=== PATIENT | female | born 1985 | race Caucasian/White ===

== ENCOUNTER 2023-10-03 10:30 | Outpatient (CLI) | payer BC, SELFPAY ==
--- NOTE | ~2023-10-03 | US_ITS ---
LIMITED OBSTETRIC ULTRASOUND Ordering provider: Ciera Parekh APRN History: . N91.2 - Amenorrhea, unspecified . Comparison: None. FINDINGS: PRESENTATION: Variable. movement is noted. PLACENTAL LOCATION: Anterior No previa. 3.9 cm from cervix. HEART RATE: 141 bpm (normal is between 110 to 160 bpm). AMNIOTIC FLUID INDEX: Normal. OTHER: Maternal ovaries not visualized. Estimated weight is 148.6 mg. IMPRESSION: Single live fetus of 16 weeks and 2 days with variable presentation. NAM is March 17, 2024 Reviewed, dictated and finalized at location A. IMPRESSION: Single live fetus of 16 weeks and 2 days with variable presentation. NAM is Feb
== END 2023-10-03 10:31 ==
LOC: GOSHIMG 10:32
PROVIDERS: Visit Provider Nurse Practitioner Obstetrics & Gynecology
DX: Z34.92 Encounter for supervision of normal pregnancy, unspecified, second trimester (principal); Z3A.16 16 weeks gestation of pregnancy
CPT/HCPCS: 76815

== ENCOUNTER 2023-10-26 16:32 | Outpatient (CLI) | payer BC, SELFPAY ==
[2023-10-26 17:00] LABS: Basophils Percent Auto 0.2 % (0.2-1.2); Eosinophils Absolute Auto 0.3 K/mm3 (0-0.3); Eosinophils Percent Auto 2.6 % (0-4.4); Hematocrit 35.7 % (37.0-47.0); Hemoglobin 12.4 g/dL (12.0-15.0); Immature Granulocyte Absolute 0.03 K/mm3 (0.00-0.031); Immature Granulocyte Percent A 0.3 % (0-0.5); Lymphocytes Absolute Auto 1.82 K/mm3 (0.9-3.2); Lymphocytes Percent Auto 16.4 % (18.3-44.2); Mean Corpuscular HGB Conc 34.7 g/dl (32-36); Mean Corpuscular Hemoglobin 30.7 pg (26-34); Mean Corpuscular Volume 88.4 fl (80-100); Mean Platelet Volume 10.1 fl (7.4-10.4); Monocytes Absolute Auto 0.7 K/mm3 (0.1-0.6); Monocytes Percent Auto 6.3 % (2.6-8.5); Neutrophils Absolute Auto 8.2 K/mm3 (1.3-6.7); Neutrophils Percent Auto 74.2 % (45.5-73.1); Platelet Count Result 287 k/mm3 (150-375); Red Blood Count 4.04 M/mm3 (4.2-5.4); Red Cell Distribution Width 12.7 % (11.5-14.5); White Blood Count 11.1 K/mm3 (4.5-10.0)
[2023-10-26 17:42] LABS: Appearance Urine Clear (Clear); Bilirubin Urine Negative (Negative); Blood Urine Negative (Negative); Color Urine Yellow (Yellow); Glucose Urine UA Negative (Negative); Ketones Urine Negative (Negative); Leukocyte Esterase Ur Negative LEU/UL (Negative); Nitrate Urine Negative (Negative); Protein Urine Negative (Negative); Specific Grav Ur 1.023 (1.001-1.035)
[2023-10-26 17:45] LABS: Add Urine Microscopic? NO
[2023-10-26 17:54] LABS: HIV 1/2 Ab P24 Ag Result Negative (Negative)
[2023-10-26 18:05] LABS: Hepatitis B Surface Antigen Negative (Negative); Rubella IgG Antibody 11.3 IU/ML
[2023-10-26 18:22] LABS: Hepatitis C Virus Antibody Negative (Negative)
[2023-10-27 10:33] LABS: Rapid Plasma Reagin Non-Reactive (NonReactive)
== END 2023-10-26 16:33 | disposition home or self-care (01) ==
PROVIDERS: PCP Nurse Practitioner Family; Visit Provider Obstetrics & Gynecology
DX: Z34.90 Encounter for supervision of normal pregnancy, unspecified, unspecified trimester (principal)
CPT/HCPCS: 36415; 81003; 85025; 86592; 86703; 86762; 86787; 86803; 86850; 86900; 86901; 87086; 87088; 87340; G0432

== ENCOUNTER 2024-03-05 09:01 | Outpatient (CLI) | payer BC, SELFPAY ==
[2024-03-05] VITALS (10 sets, daily range): BP systolic 95–100; BP diastolic 58–68; PULSE 83–109; O2SAT 99–100
[2024-03-05] MEDS: ACETAMINOPHEN 500 MG TABLET 1000 MG PO (09:53)
--- NOTE | 2024-03-05 10:48 | PC.NURSE ---
Pt came in for NST. After NST was done pt stated stated she had a MCGILL that was 7 out of 10. RN informed Dr. Velez of this. Patient was not experiencing any other symptoms. Orders to give Tylenol and discharge pt home if MCGILL resolves. [id number]: RN phone Dr. Velez to inform her that patient's headache has resolved orders to discharge patient home
== END 2024-03-05 10:20 ==
LOC: ANHOUTPT 09:38 → ANHLDR 09:48
PROVIDERS: PCP Nurse Practitioner Family; Visit Provider Obstetrics & Gynecology
DX: O36.0190 Maternal care for anti-D [Rh] antibodies, unspecified trimester, not applicable or unspecified (principal); O26.899 Other specified pregnancy related conditions, unspecified trimester; R51.9 Headache, unspecified; Z3A.00 Weeks of gestation of pregnancy not specified
CPT/HCPCS: 59025; A9270

== ENCOUNTER 2024-03-15 09:08 | Outpatient (RCR) | payer BC, SELFPAY ==
[2024-02-23 09:15] VITALS: BP 117/58; PULSE 89
[2024-02-27 07:49] VITALS: BP 111/61; PULSE 95
[2024-03-01 08:36] VITALS: BP 110/67; PULSE 116
[2024-03-08 09:13] VITALS: BP 107/65; PULSE 74
[2024-03-12 08:22] VITALS: BP 108/62; PULSE 74
--- NOTE | ~2024-03-15 | US_ITS ---
EXAMINATION: US OB limited w BPP DATE: 03/08/2024 09:05 INDICATION: Third trimester with advanced maternal age TECHNIQUE: Real-time pelvic ultrasound was performed. The interpreting radiologist was not present fo r the study. COMPARISON: None. FINDINGS: There is a single living fetus in vertex presentation. The placenta is anterior. heart rate is 127 beats per minute (bpm). Normal amniotic fluid index of 14.8 cm (5th%-95%: 7.3-23.9 cm at T8 week s estimated gestational age) Biophysical profile performed by the technologist: breathing (30 sec sustained breathing in 30 minutes): 2 out of 2 movement (3 gross body movements in 30 minutes): 2 out of 2 tone (one episode of yapfepv-volnljslg-gpsnfnb limb movement): 2 out of 2 Amniotic fluid pocket (2 cm): 2 out of 2 Total score: 8 out of 8 IMPRESSION: 1. Single living fetus in vertex presentation with heart rate of 127 bpm. 2. Biophysical profile 8 out of 8. 3. Normal amniotic fluid index of 14.8 cm. Reviewed, dictated and finalized at location B. ET REPORTER
--- NOTE | ~2024-03-15 | US_ITS ---
EXAMINATION: US OB follow up w BPP DATE: 02/23/2024 09:46 INDICATION: Advanced maternal age. Estimated weight during third trimester TECHNIQUE: Real-time pelvic ultrasound was performed. The interpreting radiologist was not present fo r the study. COMPARISON: None. FINDINGS: There is a single living fetus in vertex presentation. The placenta is anterior and not low-lying. C ervical length measures approximately 3.3 cm which is normal. heart rate is 136 beats per minut e (bpm).The amniotic fluid index is 21.3 cm, which is normal (5th%-95%: 7.7-24.9 cm at 36 weeks estim ated gestational age) . The following biometric data were obtained: BPD: 9.0 cm -> 36 weeks 3 days Head circumference: 31.7 cm -> 35 weeks 5 days Abdominal circumference: 35.3 cm -> 39 weeks 1 days Femur length: 7.1 cm -> 36 weeks 2 days Below normal head circumference to abdominal circumference ratio: 0.90 (normal range 0.92-1.05). These measurements are otherwise concordant. Estimated weight: 3309 g (+/-) 496 g, 7lbs 5oz (+/-) 1 lb. 2 oz Biophysical profile performed by the technologist: breathing (30 sec sustained breathing in 30 minutes): 2 out of 2 movement (3 gross body movements in 30 minutes: 2 out of 2 tone (one episode of rlzwqtw-dvdsqkfqv-qwamymk limb movement): 2 out of 2 Amniotic fluid pocket (2 cm): 2 out of 2 Total score: 8 out of 8 IMPRESSION: 1. Single living fetus in vertex presentation. 2. Normal amniotic fluid index of 21.3 cm. 3. Biophysical profile 8 out of 8. 4. Estimated weight is 88th percentile by Hadlock criteria when 03/20/2024 is used as the estim ated date of delivery (NAM). Please correlate with clinical information or earlier ultrasounds for mo st accurate NAM. 5. Head circumference to abdominal circumference ratio is 0.90 slightly below the normal range (0.92- 1.05). Reviewed, dictated and finalized at location A. IMPRESSION: 1. Single living fetus in vertex presentation. 2. Normal amniotic fluid index of 21.3 cm. 3. Biophysical profile 8 out of 8. 4. Estimated weight is 88th percentile by Hadlock criteria when 4 is used as the estimated date of delivery (NAM). Please correlate with clinic al information or earlier ultrasounds for most accurate NAM. 5. Head circumference to abdominal circumference ratio is 0.90 slightly below t he normal range (0.92-1.05).
--- NOTE | ~2024-03-15 | US_ITS ---
EXAMINATION: US OB limited w BPP DATE: 03/01/2024 08:33 INDICATION: Advanced maternal age. Third trimester. TECHNIQUE: Real-time pelvic ultrasound was performed. COMPARISON: Ultrasound 02/23/2024 FINDINGS: There is a single living fetus in vertex presentation. The placenta is anterior. heart rate is 135 beats per minute (bpm). The amniotic fluid index is 15.1 cm, which is normal. Biophysical profile performed by the technologist: breathing (30 sec sustained breathing in 30 minutes): 2 out of 2 movement (3 gross body movements in 30 minutes): 2 out of 2 tone (one episode of ovqjasd-ynukpkkkg-zknmkju limb movement): 2 out of 2 Amniotic fluid pocket (2 cm): 2 out of 2 Total score: 8 out of 8 IMPRESSION: 1. Single living fetus in vertex presentation. 2. Biophysical profile 8 out of 8. Reviewed, dictated and finalized at location A. SEWER
--- NOTE | ~2024-03-15 | US_ITS ---
EXAMINATION: US OB limited w BPP DATE: 03/15/2024 10:09 INDICATION: Advanced maternal age during third trimester . Assess biophysical profile and am niotic fluid index. TECHNIQUE: Real-time pelvic ultrasound was performed. The interpreting radiologist was not present fo r the study. COMPARISON: None. FINDINGS: There is a single living fetus in each presentation. The placenta is anterior. heart rate is 1 38 beats per minute (bpm). Normal amniotic fluid index of 11.8 cm (5th%-95%: 7.2-22.6 cm at 39 weeks estimated gestational age) Biophysical profile performed by the technologist: breathing (30 sec sustained breathing in 30 minutes): 2 out of 2 movement (3 gross body movements in 30 minutes): 2 out of 2 tone (one episode of dsudbmc-mhpfyqnxb-kxqnrql limb movement): 2 out of 2 Amniotic fluid pocket (2 cm): 2 out of 2 Total score: 8 out of 8 IMPRESSION: 1. Single living fetus in each presentation with heart rate of 138 bpm. 2. Biophysical profile 8 out of 8. 3. Normal amniotic fluid index of 11.8 cm. Reviewed, dictated and finalized at location B. CUTTER
[2024-03-15 09:35] LABS: Basophils Percent Auto 0.2 % (0.2-1.2); Eosinophils Absolute Auto 0.1 K/mm3 (0-0.3); Hematocrit 33.6 % (37.0-47.0); Hemoglobin 10.8 g/dL (12.0-15.0); Immature Granulocyte Absolute 0.05 K/mm3 (0.00-0.031); Immature Granulocyte Percent A 0.6 % (0-0.5); Lymphocytes Absolute Auto 1.39 K/mm3 (0.9-3.2); Lymphocytes Percent Auto 15.6 % (18.3-44.2); Mean Corpuscular HGB Conc 32.1 g/dl (32-36); Mean Corpuscular Hemoglobin 28.7 pg (26-34); Mean Corpuscular Volume 89.4 fl (80-100); Mean Platelet Volume 11.5 fl (7.4-10.4); Monocytes Absolute Auto 0.5 K/mm3 (0.1-0.6); Monocytes Percent Auto 5.9 % (2.6-8.5); Neutrophils Absolute Auto 6.9 K/mm3 (1.3-6.7); Neutrophils Percent Auto 76.7 % (45.5-73.1); Platelet Count Result 223 k/mm3 (150-375); Red Blood Count 3.76 M/mm3 (4.2-5.4); White Blood Count 8.9 K/mm3 (4.5-10.0)
[2024-03-15 09:38] VITALS: BP 117/64; PULSE 83
[2024-03-15 10:35] LABS: HIV 1/2 Ab P24 Ag Result Negative (Negative)
[2024-03-15 11:32] LABS: Rapid Plasma Reagin Non-Reactive (NonReactive)
== END 2024-05-23 23:59 | disposition home or self-care (01) ==
LOC: ANHOBOP 09:08
PROVIDERS: PCP Nurse Practitioner Family; Visit Provider Obstetrics & Gynecology
DX: O09.513 Supervision of elderly primigravida, third trimester (principal); Z3A.36 36 weeks gestation of pregnancy
CPT/HCPCS: 36415; 59025; 76815; 76816; 76819; 85025; 86592; 86703; 86850; 86900; 86901; G0432

== ENCOUNTER 2024-03-16 05:39 | Inpatient (IN) | payer BC, SELFPAY ==
[2024-03-16] VITALS (41 sets, daily range): BP systolic 88–118; BP diastolic 54–81; PULSE 55–93; RESP 15–20; TEMP 36–36.9; O2SAT 98–100; BMI 37.8
[2024-03-16] MEDS: ACETAMINOPHEN 500 MG TABLET 1000 MG PO (06:09)
[2024-03-16] MEDS: LACTATED RINGERS 1,000 ML 125 ML IV CONT (06:12)
--- NOTE | 2024-03-16 06:16 | LDADM ---
This patient, Ciera Mancera, was admitted to Labor/Delivery/Recovery 120 on 03/16/24 at 05:39. Plans for labor, pain management and were discussed with patient. Patient/family oriented to hospital policies and general routines including ID bracelet, bed and alarms, visiting hours, pain management, procedures, bathroom and other care routines, personal items, smoking policy, room service/diet and guest tray routines, security routines, and visiting hours. Patient/Family are encouraged to report perceived risks to care and to ask questions if they do not understand what they are told or what they should do. See OBIX for further documentation.
--- NOTE | 2024-03-16 07:26 | P.HP_ITS ---
H&P: HPI History of Present Illness Date/Time: 03/16/24 07:26 Chief Complaint: Repeat section Narrative: 38 y/o at 39 weeks admitted for elective repeat section and tubal sterilization. She has had 3 prior sections and has satisfied parity and request permanent sterilization. She declines all other nonpermanent forms of contraception. PNC significant for AMA. She has had normal surveillance testing. Review of Systems Review of Systems: All systems reviewed & are unremarkable except as noted in HPI and below Constitutional: Constitutional: Reports no additional constitutional complaints and Denies headache(s) Eyes: Eyes: Denies spots in vision ENT: Reports system reviewed and no additional complaints, except as documented and Denies headache(s) Cardiovascular: Cardiovascular: Denies chest pain and Denies dyspnea Respiratory: Respiratory: Denies dyspnea Gastrointestinal: Gastrointestinal: Reports no additional gastrointestinal complaints Genitourinary: Genitourinary: Reports amenorrhea Musculoskeletal: Musculoskeletal: Reports no additional musculoskeletal complaints Integumentary/Breasts: Skin/Breast: Denies breast mass and Denies rash Neurologic: Denies headache(s) Psychiatric: Psychiatric: Reports no additional psychiatric complaints [facility] Past Medical History Medical History (Updated 03/16/24 @ 07:29 by Usman Velez MD) Surgical History Surgical History (Updated 03/16/24 @ 07:29 by Usman Velez MD) History of appendectomy History of x3 Family History Family History Father Diabetes mellitus Grandparent Heart disease Social History Social History Smoking status: Never smoker Alcohol intake: former Substance use: never Do You Feel Safe in your Home?: Yes Lack of Transportation: No Lack of Food: Never True Current Housing: I Have Housing Concerned About Future Housing: No Difficulty Paying Gas/Electric Bills: No Difficulty Paying for Meds: No Currently Unemployed: No Education: Master's Degree or Higher Difficulty w/ Childcare or Family Care: No Spiritual care concerns: No Meds Home Medications and Allergies Home Medications Medication Instructions Recorded Confirmed Type docosahexaenoic acid 200 mg 1 mg PO DAILY 09/28/23 03/13/24 History capsule ( DHA) Allergies Allergy/AdvReac Type Severity Reaction Status Date / Time No Known Drug Allergies AdvReac none Verified 03/13/24 08:49 Vital Signs Vital Signs - 24 hr 03/16/24 06:04 03/16/24 06:06 03/16/24 06:09 Temperature 97.9 F Pulse Rate 81 Respiratory Rate 16 Blood Pressure 111/66 Pulse Oximetry 100 98 Oxygen Delivery 03/16/24 06:14 03/16/24 06:19 03/16/24 06:24 Temperature Pulse Rate Respiratory Rate Blood Pressure Pulse Oximetry 98 99 100 Oxygen Delivery 03/16/24 06:29 03/16/24 06:34 03/16/24 06:39 Temperature Pulse Rate Respiratory Rate Blood Pressure Pulse Oximetry 99 99 99 Oxygen Delivery 03/16/24 06:44 03/16/24 06:49 03/16/24 06:54 Temperature Pulse Rate Respiratory Rate Blood Pressure Pulse Oximetry 98 99 99 Oxygen Delivery 03/16/24 06:09 03/16/24 06:15 Temperature 97.9 F Pulse Rate Respiratory Rate Blood Pressure Pulse Oximetry Oxygen Delivery Room Air Exam Const: General: no acute distress Eyes: General: appearance normal, both eyes and all related structures Resp: Effort & Inspection: normal respiratory effort Cardio: Rate: regular rate GI: Other: Gravid no fundal tenderness no right upper quadrant pain Skin: General skin exam: no rashes or lesions noted Neuro: Cognition (Neuro): normal cognition Extrem: General: normal to inspection Psych: Mental Status: mental status grossly normal Assessment and Plan Assessment and plan (1) Encounter for sterilization: Code(s): Z30.2 - Encounter for sterilization Status: Acute Assessment and Plan: 1. Admit 2. Will proceed with repeat section and tubal sterilization.
[2024-03-16] MEDS: FAMOTIDINE 20 MG/2 ML VIAL IV PUSH (07:28)
[2024-03-16] MEDS: ONDANSETRON INJ 4 MG/2 ML VIAL IV PUSH (07:28)
[2024-03-16] MEDS: ceFAZolin 2 GM/D5W 50 ML 2 GM/50 ML BAG IVPB (07:35)
--- NOTE | 2024-03-16 07:37 | P.PNAN_ITS ---
Anes - Initial Pre Proc Eval Procedure: Operation Date: 03/16/24 07:30 Proposed Procedures p Repeat Section with Tubal Ligation - Usman Velez MD Date/Time: 03/16/24 07:37 Surgeon: Usman Velez MD Pre Op Diagnosis: C section Patient Data Age: 38 Gender: F Height: 1.52 m Weight: 88 kg Last Vital Signs Temp 36.6 C 03/16/24 06:09 Pulse 81 03/16/24 06:06 Resp 16 03/16/24 06:06 BP 111/66 03/16/24 06:06 Pulse Ox 99 03/16/24 06:54 O2 Del Method Room Air 03/16/24 06:15 Allergies Allergy/AdvReac Type Severity Reaction Status Date / Time No Known Drug Allergies AdvReac none Verified 03/13/24 08:49 Home Medications Medication Instructions Recorded Confirmed Type docosahexaenoic acid 200 mg 1 mg PO DAILY 09/28/23 03/13/24 History capsule ( DHA) Patient hx anesthesia problems: none Family hx anesthesia problems: none Results Review: All pre-operative results and documents have been reviewed as part of the pre- operative evaluation. COUNT INCLUDES THE [facility] Past Medical History Medical History Surgical History Surgical History History of appendectomy History of x3 Family History Family History Father Diabetes mellitus Grandparent Heart disease Social History Social History Smoking status: Never smoker Alcohol intake: former Substance use: never Do You Feel Safe in your Home?: Yes Lack of Transportation: No Lack of Food: Never True Current Housing: I Have Housing Concerned About Future Housing: No Difficulty Paying Gas/Electric Bills: No Difficulty Paying for Meds: No Currently Unemployed: No Education: Master's Degree or Higher Difficulty w/ Childcare or Family Care: No Spiritual care concerns: No Anes - Eval Final PreProcedure Day of Procedure 03/16/24 07:37 Patient weight: obese Heart: regular rate and rhythm Lungs: clear to auscultation Airway: Mallampati scale class III Neurological: alert and oriented Last oral intake: >/= 8 hours ASA classification: III Emergent: no Anesthetic plan: proceed Anesthesia type and monitoring: regional spinal and standard monitoring Results Review: All pre-operative results and documents have been reviewed as part of the pre- operative evaluation. Informed Consent: The patient's anesthetic plan and its attendant risks and benefits were discussed with the patient/family/POA. Questions were solicited and answers provided to the satisfaction of the patient/family/POA.
--- NOTE | 2024-03-16 07:47 | P.PNAN_ITS ---
Anes - Eval Final PreProcedure Day of Procedure 03/16/24 07:47 Patient weight: obese Heart: regular rate and rhythm Lungs: clear to auscultation Airway: Mallampati scale class II Neurological: alert and oriented Last oral intake: >/= 8 hours ASA classification: II Emergent: no Anesthetic plan: proceed Anesthesia type and monitoring: regional spinal and standard monitoring Results Review: All pre-operative results and documents have been reviewed as part of the pre- operative evaluation. Informed Consent: The patient's anesthetic plan and its attendant risks and benefits were discussed with the patient/family/POA. Questions were solicited and answers provided to the satisfaction of the patient/family/POA.
[2024-03-16] MEDS: METHYLERGONOVINE MALEATE 0.2 MG/ML VIAL IM (09:46)
--- NOTE | 2024-03-16 09:50 | P.PCNOB_ITS ---
OB - Delivery Note Procedure Delivery date: 03/16/24 Pre-op diagnosis: Breech Presentation, Previous Delivery and Other (Undesired fertility, request sterilization) Post-op Diagnosis: Same Induction method: None Prior to decision for section, ACO[facility] labor guidelines were considered and discussed with the patient and staff. Decision made to proceed with the section.: Yes Procedure Performed: Repeat and Tubal Ligation Surgeon: Usman Velez MD Anesthesia type: Spinal Description of Procedure/Findings: Female , normal fallopian tubes and ovaries After informed consent, risks and benefits of the procedure was discussed with the patient. The patient was taken to the operating room where she was placed in the dorsal lithotomy position with leftward tilt after spinal anesthesia was placed and found to be adequate. She was then prepped and draped in the usual sterile fashion. A Pfannenstiel skin incision was made with a scalpel along prior scar and was carried through to the underlying layer of fascia. The fascia was then nicked in the midline, extending bilaterally with Huff scissors. The fascia was dissected off the rectus muscles superiorly and inferiorly. The rectus muscles were in the midline, and peritoneum was identified and entered bluntly. The pelvic organs were visualized. The bladder blade was then inserted. The vesicouterine peritoneum was identified and entered sharply with Metzenbaum scissors and extended bilaterally and then the bladder flap was created digitally. The low transverse uterine incision was then made with the scalpel and extended with bilateral index fingers in a crescent-shaped fashion. Both feet were gently grasped and the buttocks was delivered. The arms were then delivered and the next the head was delivered in a flex position. The cord was reduced from leg and around the trunk area x 2. The Nose and mouth were suctioned. The cord was clamped twice and cut. The infant was then handed off to the awaiting pediatric staff. The placenta was then delivered manually. The uterine cavity was sponge curetted. The uterus was then exteriorized. The uterine incision was then closed with 0 vicryl in a running locked fashion. A second layer of figure of eight sutures of 0 vicryl were used. Anesthesia was instructed to give 2mg of Methergine IM for improved tone of lower uterine segment. Tone improved. Hemostasis noted. The right and left fallopian tubes were excised using Ligasure. Hemostasis noted. Posterior cul de sac irrigated. The uterus was then returned to the abdomen. Bilateral gutters were cleared off all clots and debris. The uterine incision and salpingectomy sites were hemostatic.The peritoneum was approximated with 3.0 vicryl. The muscle bellies were inspected and noted to be hemostatic. The subfascial layer was noted to be hemostatic, and the fascia was closed with 0 Vicryl in a running fashion x2. The subcutaneous layer was irrigated. Hemostasis obtained with cautery. The subcutaneous layer was approximated with 3-0 Vicryl. The skin was closed with 3.0 vicryl on a [place] needle. Dermabond applied at incision. Mipelex dressing applied. All instruments, needle, and lap counts were correct x3. The patient was taken to the recovery room in stable condition. Specimen: Yes (right and left fallopian tubes, placenta nd cord) Estimated Blood Loss: 450 Drains: No Packing: No Pathology: Yes (right and left fallopian tubes) Complications: No immediate complications Condition: Stable Disposition: Floor [place] Baby Date of : 03/16/24 Gestational Age by Date: 39 Infant gender: Female presentation: breech (footling) Placenta delivery description: Manual Removal Cord Vessel Description: 3 Vessels, Loose (1 around ext, 2 around trunk), Reduced and Around Extremity
--- NOTE | 2024-03-16 10:05 | P.DS_ITS ---
DS: Admitting Diagnosis Admitting Diagnosis 1. Elective repeat section 2. Request permanent sterilization 3. UTI DS: Discharge Diagnosis Discharge Diagnosis (1) Encounter for sterilization: Code(s): Z30.2 - Encounter for sterilization Status: Acute (2) History of : Code(s): Z98.891 - History of uterine scar from previous surgery Status: Acute (3) Delivery by section: Status: Acute OB - DS: Summary Hospital Course Hospital Course: She was admitted for repeat section and bilateral salpingectomy. Recent urine culture was positive for UTI. She received antibiotics IV and was continued on oral antibiotics. Post operatively OB Procedures : NST and Ultrasound OB Procedures Intrapartum: and Tubal ligation (bilateral salpingectomy) OB Procedures: : None Peripartum Data Infant Delivery Method: Section Procedures: Procedures Operation Date: 03/16/24 07:30 Actual Procedure Side Surgeon p Repeat Section with Tubal Ligation Bilateral Usman Velez MD complications: none Status at Discharge Functional status at discharge: independent ambulation Time Spent with Patient Time attestation: Total time spent providing and/or coordinating discharge services: Exam Const: General: cooperative Orientation/consciousness: oriented to person, oriented to place and oriented to time HENMT: Face/Nose/Sinus: Normal external nose present Eyes: General: appearance normal, both eyes and all related structures Resp: Effort & Inspection: normal respiratory effort GI: Inspection: normal to inspection Skin: General skin exam: normal color Neuro: General: oriented to person, oriented to place and oriented to time Extrem: General: normal to inspection and no calf tenderness Psych: Appearance: grossly normal Mental Status: mental status grossly n ormal Discharge Plan Discharge Attending physician on discharge: Usman Velez Consulting providers: Nahum Crespo; Alexander Ayala Patient Disposition: Home, Self-Care Activity: may shower, no straining and no driving Diet: regular Wound Care Instructions: follow printed instructions Patient Instructions: Antibiotic Form Stand Alone Forms: General Discharge Information Follow-up/Referrals: Usman Velez MD [Physician] - 1 Week Discharge Medications: No Action DHA 200 mg capsule 1 mg PO DAILY Date of admission: 03/16/24 05:39 Primary Care Provider: SusiTracie Admitting Provider: Usman Velez Attending physician on admission: Usman Velez Condition: Stable
[2024-03-16] MEDS: SIMETHICONE 80 MG TAB.CHEW PO (11:58)
[2024-03-16] MEDS: DOCUSATE SODIUM 100 MG CAPSULE PO ×2 (11:59→17:55)
[2024-03-16] MEDS: KETOROLAC 15 MG/ML VIAL (*BKC) IV PUSH ×3 (11:59→23:15)
[2024-03-16] MEDS: ACETAMINOPHEN 325 MG TABLET 650 MG PO ×3 (11:59→23:15)
--- NOTE | 2024-03-16 15:15 | PC.NURSE ---
1515- Attempted to assist mother in latching to the [right] breast in football & cradle] position. [was not] able to maintain an appropriate latch. Mother [declines ] nipple pain/discomfort. Baby made a few attempts to open her mouth and latch but was unable to. was gassy and working on a bowel movement so we took a break from trying to feed and let her finish. Mom's other children are in the room and she wants to wear a cover so it is difficult to assist with latch. Mother voiced understanding of the education shared, to call for assistance if the infant does not latch or if there is discomfort with . name/number on communication board. Reported to the Primary RN.?
[2024-03-16] MEDS: DEXTROSE 5%/0.45% SOD CHL 1,000 ML 125 ML (19:32)
[2024-03-16] MEDS: CEPHALEXIN 500 MG CAPSULE PO (21:00)
[2024-03-17] MEDS: ACETAMINOPHEN 325 MG TABLET 650 MG PO ×4 (04:30→22:35)
[2024-03-17] MEDS: KETOROLAC 15 MG/ML VIAL (*BKC) IV PUSH (04:30)
[2024-03-17 04:38] LABS: Basophils Percent Auto 0.3 % (0.2-1.2); Eosinophils Absolute Auto 0.2 K/mm3 (0-0.3); Eosinophils Percent Auto 1.6 % (0-4.4); Hematocrit 26.9 % (37.0-47.0); Hemoglobin 8.5 g/dL (12.0-15.0); Immature Granulocyte Absolute 0.06 K/mm3 (0.00-0.031); Immature Granulocyte Percent A 0.6 % (0-0.5); Lymphocytes Absolute Auto 1.33 K/mm3 (0.9-3.2); Lymphocytes Percent Auto 12.4 % (18.3-44.2); Mean Corpuscular HGB Conc 31.6 g/dl (32-36); Mean Corpuscular Volume 88.5 fl (80-100); Mean Platelet Volume 11.7 fl (7.4-10.4); Monocytes Absolute Auto 0.9 K/mm3 (0.1-0.6); Monocytes Percent Auto 8.6 % (2.6-8.5); Neutrophils Absolute Auto 8.2 K/mm3 (1.3-6.7); Neutrophils Percent Auto 76.5 % (45.5-73.1); Platelet Count Result 197 k/mm3 (150-375); Red Blood Count 3.04 M/mm3 (4.2-5.4); White Blood Count 10.7 K/mm3 (4.5-10.0)
--- NOTE | 2024-03-17 06:57 | WPDANLDPN2 ---
Anes-Prog Note L&D Date/Time: 03/17/24 06:57 Comfortable throughout: section Neuraxial method: spinal Neuro status: Neuro function grossly intact. Cardiovascular status: normal Respiratory status: normal Airway patency: baseline Mental status: baseline Post-Op hydration status: normal Vital Signs: Last Vital Signs Temp 98.4 F 03/16/24 21:29 Pulse 68 03/16/24 21:29 Resp 20 03/16/24 21:29 BP 88/54 L 03/16/24 21:29 Pulse Ox 99 03/16/24 21:29 O2 Del Method Room Air 03/16/24 19:27 Pain score (VAS): 0 I/O: Intake & Output 03/16/24 03/16/24 03/17/24 15:59 23:59 07:59 Intake Total 500 Output Total 2150 2400 Balance -1650 -2400 Post-procedural complaints: none Patient feedback: Patient satisfied with anesthetic care.
--- NOTE | 2024-03-17 06:58 | WPDANLDNPN2 ---
Anes-Prog Note L&D-Neuraxial Date/Time: 03/17/24 06:58 Neuraxial medications: intrathecal PF morphine Opiod-related complaints: none Patient feedback: Patient satisfied with post-operative pain management.
[2024-03-17 07:45] VITALS: BP 107/63; PULSE 57; RESP 16; TEMP 36.4; O2SAT 99
[2024-03-17] MEDS: MULTIVIT/MIN/PREN/FOL AC/IRON TABLET 1 TAB PO (09:11)
[2024-03-17] MEDS: SIMETHICONE 80 MG TAB.CHEW PO ×3 (09:12→16:45)
[2024-03-17] MEDS: POLYSACCHARIDE IRON COMPLEX 150 MG CAPSULE PO ×2 (09:12→16:45)
[2024-03-17] MEDS: CEPHALEXIN 500 MG CAPSULE PO ×2 (09:12→22:35)
[2024-03-17] MEDS: LIDOCAINE 5% PATCH 1 PATCH TRANSDERM (09:51)
--- NOTE | 2024-03-17 09:51 | P.PNOB_ITS ---
OB - PN: Subj Subjective Date/time seen: 03/17/24 09:51 Patient comments: pain well controlled and tolerating diet [place] baby status: doing well and nursing well OB - PN: Obj Data Labs 03/17/24 04:14 Labs: Laboratory Results - last 24 hr 03/17/24 04:14 WBC 10.7 H RBC 3.04 L Hgb 8.5 L Hct 26.9 L MCV 88.5 MCH 28.0 MCHC 31.6 L RDW 14.0 Plt Count 197 MPV 11.7 H Immature Gran % (Auto) 0.6 H Neut % (Auto) 76.5 H Lymph % (Auto) 12.4 L [place] % (Auto) 8.6 H Eos % (Auto) 1.6 Baso % (Auto) 0.3 Lymph # (Auto) 1.33 [place] # (Auto) 0.9 H Eos # (Auto) 0.2 Baso # (Auto) 0.0 Abs Immat Gran (auto) 0.06 H Absolute Neuts (auto) 8.2 H Absolute Nucleated RBC 0.000 Nucleated RBC % 0.0 OB - PN A/P Assessment and Plan (1) Delivery by section: Status: Acute Assessment and Plan: POD1. Doing well. Asymptomatic anemia. Continue oral iron therapy. Continue oral antibiotic for UTI. Routine post care. Time Spent With Patient Time: Total time spent is greater than 50% in coordination of care (as documented) at patient's floor/unit and/or counseling patient: Exam Const: General: comfortable and no acute distress Resp: Effort & Inspection: normal respiratory effort Auscultation: clear to auscultation bilaterally Cardio: Rate: regular rate GI: Other: bowel sounds present dressing clean dry, intact Psych: Mental Status: mental status grossly normal Affect: normal affect
[2024-03-17] MEDS: IBUPROFEN 600 MG TABLET PO ×3 (10:44→22:35)
--- NOTE | 2024-03-17 12:30 | PC.NURSE ---
Mother verbalizes she is able to independently latch with appropriate positioning and alignment. She denies any nipple discomfort and is responsively . Infant is currently meeting outcomes for weight, output, jaundice, blood sugar and feeding frequencies of 8-12 times in 24 hours. Mother declines any additional assistance or education at this time. Mother is encouraged to call for assistance if her infant doesn?t latch, pain with latching, questions or concerns. Mother voiced understanding of information shared along with the mom/baby guide for an additional resource. Reported to the Primary RN.
[2024-03-17] MEDS: DOCUSATE SODIUM 100 MG CAPSULE PO (16:45)
[2024-03-17 20:00] VITALS: BP 103/65; PULSE 70; RESP 20; TEMP 37; O2SAT 98
[2024-03-18] MEDS: IBUPROFEN 600 MG TABLET PO ×4 (04:44→22:46)
[2024-03-18] MEDS: ACETAMINOPHEN 325 MG TABLET 650 MG PO ×4 (04:44→22:46)
[2024-03-18] MEDS: DOCUSATE SODIUM 100 MG CAPSULE PO ×2 (08:43→16:45)
[2024-03-18] MEDS: MULTIVIT/MIN/PREN/FOL AC/IRON TABLET 1 TAB PO (08:43)
[2024-03-18] MEDS: POLYSACCHARIDE IRON COMPLEX 150 MG CAPSULE PO ×2 (08:43→16:45)
[2024-03-18] MEDS: SIMETHICONE 80 MG TAB.CHEW PO ×3 (08:43→16:45)
[2024-03-18] MEDS: CEPHALEXIN 500 MG CAPSULE PO ×2 (08:43→20:26)
[2024-03-18 08:45] VITALS: BP 102/68; PULSE 71; RESP 16; TEMP 36.5; O2SAT 100
--- NOTE | 2024-03-18 09:16 | PM.OBPNVD ---
OB - PN: Subj Subjective Date/time seen: 03/18/24 09:16 Interval history: She was . She states pain last pm. She was trying to avoid narcotic med due to fear of constipation. Pain better this am. Lochia decreasing. Ambulating, pos flatus. Tolerating reg diet. OB - PN: Obj Data Labs 03/17/24 04:14 OB - PN A/P Assessment and Plan (1) Delivery by section: Status: Acute Assessment and Plan: POD 2. Pain better this am. Encouraged pain medication as needed. Routine post op care. Time Spent With Patient Time: Total time spent is greater than 50% in coordination of care (as documented) at patient's floor/unit and/or counseling patient: Exam Const: General: comfortable and no acute distress Resp: Effort & Inspection: normal respiratory effort Cardio: Rate: regular rate Psych: Mental Status: mental status grossly normal Affect: normal affect
[2024-03-18] MEDS: LIDOCAINE 5% PATCH 1 PATCH TRANSDERM (10:46)
[2024-03-18 20:28] VITALS: BP 117/68; PULSE 73; RESP 16; TEMP 36.8; O2SAT 100
[2024-03-19] MEDS: IBUPROFEN 600 MG TABLET PO ×2 (04:57→11:32)
[2024-03-19] MEDS: ACETAMINOPHEN 325 MG TABLET 650 MG PO ×2 (04:57→11:32)
[2024-03-19 07:45] VITALS: BP 114/60; PULSE 65; RESP 16; TEMP 36.4; O2SAT 98
[2024-03-19] MEDS: CEPHALEXIN 500 MG CAPSULE PO (08:05)
[2024-03-19] MEDS: MULTIVIT/MIN/PREN/FOL AC/IRON TABLET 1 TAB PO (08:05)
[2024-03-19] MEDS: DOCUSATE SODIUM 100 MG CAPSULE PO (08:05)
[2024-03-19] MEDS: SIMETHICONE 80 MG TAB.CHEW PO ×2 (08:05→11:32)
[2024-03-19] MEDS: POLYSACCHARIDE IRON COMPLEX 150 MG CAPSULE PO (08:05)
--- NOTE | 2024-03-19 09:22 | P.PNOB_ITS ---
OB - PN: Subj Subjective Date/time seen: 03/19/24 09:22 Interval history: She was . She states pain last pm. She was trying to avoid narcotic med due to fear of constipation. Pain better this am. Lochia decreasing. Ambulating, pos flatus. Tolerating reg diet. Patient comments: no complaints, pain well controlled, tolerating diet and flatus present [place] feeding status: exclusively breast feeding OB - PN: Obj Data Labs 03/17/24 04:14 OB - PN A/P Plan day: 3 Plan: discharge home Comments: routine post op care. pt doing well. Time Spent With Patient Time: Total time spent is greater than 50% in coordination of care (as documented) at patient's floor/unit and/or counseling patient: Exam Const: General: comfortable and no acute distress Resp: Effort & Inspection: normal respiratory effort Auscultation: clear to auscultation bilaterally Cardio: Rate: regular rate GI: Auscultation: normal bowel sounds Other: incision clean, dry and intact : Other: fundus 2 below umbilicus. incision dressing c/d/i Extrem: General: normal to inspection, capillary refill normal and no calf tenderness Psych: Mental Status: mental status grossly normal Affect: normal affect
--- NOTE | 2024-03-19 09:24 | P.DS_ITS ---
DS: Admitting Diagnosis Discharge Date 03/19/2024 Admitting Diagnosis repeat section. DS: Discharge Diagnosis Discharge Diagnosis Plan section delivered. tubal ligation OB - DS: Summary Hospital Course Hospital Course: She was admitted for repeat section and bilateral salpingectomy. Recent urine culture was positive for UTI. She received antibiotics IV and was continued on oral antibiotics. Post operatively OB Procedures : Ultrasound OB Procedures Intrapartum: OB Procedures: : P.P. tubal ligation Peripartum Data Infant Delivery Method: Section Procedures: Procedures Operation Date: 03/16/24 07:30 Actual Procedure Side Surgeon p Repeat Section with Tubal Ligation Bilateral Usman Velez MD complications: UTI Status at Discharge Functional status at discharge: independent ambulation Overall status at discharge: patient is back to baseline Time Spent with Patient Time attestation: Total time spent providing and/or coordinating discharge services: Exam Const: General: cooperative Orientation/consciousness: oriented to person, oriented to place and oriented to time HENMT: Face/Nose/Sinus: Normal external nose present Eyes: General: appearance normal, both eyes and all related structures Resp: Effort & Inspection: normal respiratory effort and able to speak in complete sentences Cardio: Rate: regular rate GI: Inspection: normal to inspection : Other: 2 below umbilicus. incision dressing c/d/i. will remove tomorrow in office. Skin: General skin exam: normal color Neuro: General: oriented to person, oriented to place and oriented to time Extrem: General: normal to inspection and no calf tenderness Psych: Appearance: grossly normal Mental Status: mental status grossly n ormal DS: Data Data Completed and Pending Pending studies at discharge: Pending at discharge 03/16/24 10:14 Surgical [PTH] Routine Discharge Plan Discharge Attending physician on discharge: Usman Velez Consulting providers: Nahum Crespo; Alexander Ayala Discharging Clinician: Ciera Parekh Patient Disposition: Home, Self-Care Activity: may shower, no straining and no driving Diet: regular Wound Care Instructions: follow printed instructions Discharge Instructions: Education: Mom and Baby Guide Given to: Mother Follow-Up: Call your delivering provider's office for an appointment to be seen in: 03/20/24 @ 2030 (Provider let office know that she might be few mins late) Mom and baby should come to the [facility] for the follow-up appointment. Appointment Date/Time: March 20, 2024 at 9:00 am What to expect at your follow-up visit: Physical Assessment Call [phone] if you are unable to keep your appointment time. BREAST CARE: * Wear a snug supportive bra. * For engorgement discomfort: Breast Feeding: * Apply warm moist washcloths * Express milk as needed to relieve engorgement * Wear loose clothing * For sore nipples: * Identify correct latch-on * Apply warm moist washcloths before and after nursing * Air dry nipples after nursing * May apply Lansinoh cream to nipples ABDOMINAL INCISION: (if applicable) * Allow incision to air dry * Do NOT use lotions for powders on your incision * When showering, allow soap and water to run over the incision, but do not wash incision EPISIOTOMY/PERINEAL CARE: * Until bleeding stops, use your sujata bottle after urinating * Change your pad frequently throughout the day * No tub baths until seen by your physician - You may shower ACTIVITY: * Rest as much as possible. * Do not exercise or lift anything heavier than your baby (such as laundry or other children.) * Avoid stairs or driving as much as possible. * Do not put anything into the vagina. No douching, tampons, or sexual activity until seen by physician. NOTIFY PHYSICIAN IF YOU HAVE ANY QUESTIONS OR IF ANY OF THE FOLLOWING SYMPTOMS OCCUR: * If your incision becomes red, swollen, or more painful than what you have experienced in the hospital. * If your vaginal bleeding becomes foul smelling. * If your vaginal bleeding becomes more heavy than a period or if your bleeding changes from pink to bright red. However, you may pass an occasional walnut- sized clot once or twice for the first week . * If you experience a sharp, shooting pain in you calves. * If you discover a hard, reddened area on your breast or if you experience flu- like symptoms. DIET: * Eat regular, well-balanced meals. * Drink plenty of fluids daily. If , drink to thirst. Patient Instructions: and Nipple Soreness (DC) Stand Alone Forms: General Discharge Information Follow-up/Referrals: Usman Velez MD [Physician] - Keep Reg. Scheduled Appt. (03/20/24 @ 0930 (After follow up at the [facility]) ) Discharge Medications: New acetaminophen 325 mg Tablet 650 mg PO Q6H Qty: 20 0RF cephalexin 500 mg Capsule 500 mg PO Q12HR 7 Days Qty: 14 0RF ibuprofen 600 mg Tablet 600 mg PO Q6H Qty: 30 0RF Continued DHA 200 mg capsule 1 mg PO DAILY Date of admission: 03/16/24 05:39 Primary Care Provider: Gisel,Tracie Kwong Admitting Provider: Usman Velez Attending physician on admission: Usman Velez Condition: Stable
--- NOTE | 2024-03-19 09:35 | PC.NURSE ---
Consulted with mother concerning needs and she shared her ability to independently latch infant optimally without pain, just initial latch on tenderness. Mother is feeding appropriately for growth of infant and understands stimulating infant to eat if needed. Infant has had appropriate feedings (breast and formula supplementation per mom's choice) in the last 24 hours meets the outcomes for weight, output, blood sugar and jaundice at this time. Observed infant latched in cradle to the left breast; the latch looks appropriate and baby is sleepy so mom is giving intermittent stimulation. Reinforced understanding of milk production, transition of milk, signs of adequate intake, transition of stool, prevention/relief of engorgement, plugged ducts, mastitis, responsive watching for feeding cues, the different methods of stimulating to breastfeed 1-3 hours after the start of the last feeding, community resources, and when to call a provider using the resource of the feeding sheet along with the mom and baby guide. Mother voiced understanding of the information shared, is confident to continue effectively her at home, when to call for assistance, denies any additional assistance or education at this time. Reported to the Primary RN.
[2024-03-19] MEDS: TETANUS,DIPHTHERIA,AC PERTUSSIS ADULT (0.5 ML) BOOSTRIX IM (11:33)
== END 2024-03-19 14:30 | disposition home or self-care (01) | DRG 783 ==
LOC: ANHLDR 05:47 → ANHOB2 11:19
PROVIDERS: Admitting Provider Obstetrics & Gynecology; PCP Nurse Practitioner Family; Visit Provider Obstetrics & Gynecology
PROC: 10D00Z1 Extraction of Products of Conception, Low, Open Approach (ICD-10-PCS; CPT 59514; principal; 2024-03-16 07:30)
DX: O34.219 Maternal care for unspecified type scar from previous cesarean delivery (principal); O75.3 Other infection during labor; N39.0 Urinary tract infection, site not specified; Z30.2 Encounter for sterilization; Z90.49 Acquired absence of other specified parts of digestive tract; O32.1XX0 Maternal care for breech presentation, not applicable or unspecified; O69.82X0 Labor and delivery complicated by other cord entanglement, without compression, not applicable or unspecified; Z3A.39 39 weeks gestation of pregnancy; Z37.0 Single live birth
CPT/HCPCS: 36415; 85025; 88302; 90715; A9270; J0690; J1596; J1885; J2210; J2274; J2371; J2405; J2590; J3010; J7120